=== PATIENT | female | born 1985 | race Caucasian/White ===

== ENCOUNTER 2018-04-16 11:44 | Emergency (ER) | payer MEDICARE ==
[~2018-04-16] VITALS: Ht 152.4 cm; Wt 77.1 kg
[2018-04-16 11:53] VITALS: BP_SYST 128
[2018-04-16] MEDS ORDERED: PROCHLORPERAZINE EDISYLATE 10 MG/2 ML VIAL IM ONE (12:30)
[2018-04-16] MEDS ORDERED: KETOROLAC TROMETHAMINE 60 MG/2 ML VIAL IM ONE (12:30)
[2018-04-16 13:54] VITALS: BP_SYST 110
== END 2018-04-16 13:54 | disposition home or self-care (01) ==
LOC: SED 11:44
DX: G44.209 Tension-type headache, unspecified, not intractable (principal); Z90.49 Acquired absence of other specified parts of digestive tract; Z98.51 Tubal ligation status; R03.0 Elevated blood-pressure reading, without diagnosis of hypertension
CPT/HCPCS: 81025; 96372; 99283; J0780; J1885